=== PATIENT | male | born 1995 | race Two or more races ===

== ENCOUNTER 2016-11-30 18:45 | Emergency (ER) | payer SELFPAY ==
[~2016-11-30] VITALS: Ht 182.9 cm; Wt 81.6 kg
[2016-11-30 18:53] VITALS: BP 151/70
[2016-11-30] MEDS ORDERED: SULF1TAB24 PO (19:01)
[2016-11-30] MEDS ORDERED: NAPR500T PO (19:01)
--- NOTE | 2016-11-30 19:02 | PHYS DOC ---
Past Medical History Past Medical History: Asthma Past Surgical History: No Surgical History Alcohol Use: None Drug Use: None Adult General Chief Complaint Chief Complaint: INSECT BITE HPI HPI Patient is a 21 year old male presents to the emergency Department complaint insect bite. He states that her days ago he noticed an insect bite on the right upper extremity. He states that prior to going to bed that night he had seen a brown spider. Patient also reports that he has a similar lesion on the left hip that he has been treating with peroxide and moist heat. He reports no fever, no headache, no myalgias. Review of Systems Review of Systems Constitutional: Denies fever or chills [] Eyes: Denies change in visual acuity, redness, or eye pain [] HENT: Denies nasal congestion or sore throat [] Respiratory: Denies cough or shortness of breath [] Cardiovascular: No additional information not addressed in HPI [] GI: Denies abdominal pain, nausea, vomiting, bloody stools or diarrhea [] : Denies dysuria or hematuria [] Musculoskeletal: Denies back pain or joint pain [] Integument: Insect bite Neurologic: Denies headache, focal weakness or sensory changes [] Endocrine: Denies polyuria or polydipsia [] Allergies Allergies Allergies Coded Allergies Type Severity Reaction Last Updated Verified No Known Drug Allergies 07/19/13 No Physical Exam Physical Exam Constitutional: Well developed, well nourished, no acute distress, non-toxic appearance. [] Eyes: PERRLA, EOMI, conjunctiva normal, no discharge. [] Neck: Normal range of motion, no tenderness, supple, no stridor. [] Cardiovascular:Heart rate regular rhythm, no murmur [] Lungs & Thorax: Bilateral breath sounds clear to auscultation [] Skin: Warm, dry, right forearm, volar aspect, 2 cm area of induration with central pustule. There is no fluctuance. Is mildly tender to palpate. The left buttock has a partially healed lesion without induration or fluctuance. Is nontender to palpate. Lymphatics: No gross lymphadenopathy Back: No tenderness, no CVA tenderness. [] Current Patient Data Vital Signs Vital Signs Date Time Temp Pulse Resp B/P (MAP) Pulse Ox O2 Delivery O2 Flow Rate FiO2 11/30/16 18:53 98.5 103 15 97 Room Air 98.5 EKG EKG [] Radiology/Procedures Radiology/Procedures [] Course & Med Decision Making Course & Med Decision Making Pertinent Labs and Imaging studies reviewed. (See chart for details) [] Dragon Disclaimer Dragon Disclaimer This electronic medical record was generated, in whole or in part, using a voice recognition dictation system. Departure Departure Impression: Primary Impression: Insect bite Additional Impression: Cellulitis Referrals: NON,STAFF (PCP) Patient Instructions: Cellulitis, Insect Bite Additional Instructions: Warm packs to the affected area. Do not manipulate, squeeze, poke or prod the area of concern. Return to the emergency Department for new symptoms or concerns or worsening of current condition. Scripts Naproxen (NAPROSYN) 500 Mg Tablet 500 MG PO BID Y for PAIN, #20 TAB Prov: EVANGELIST GODDARD APRN 11/30/16 Sulfamethoxazole/Trimethoprim (BACTRIM DS TABLET) 1 Each Tablet 1 TAB PO BID, #20 TAB Prov: EVANGELIST GODDARD APRN 11/30/16 Problem Qualifiers Primary Impression: Insect bite Encounter type: initial encounter Qualified Codes: W57.XXXA - Bitten or stung by nonvenomous insect and other nonvenomous arthropods, initial encounter Additional Impression: Cellulitis Site of cellulitis: extremity Site of cellulitis of extremity: upper extremity Laterality: right Qualified Codes: L03.113 - Cellulitis of right upper limb EVANGELIST GODDARD APRN Nov 30, 2016 19:01
== END 2016-11-30 19:05 | disposition home or self-care (01) ==
LOC: ER 18:45
DX: S40.861A Insect bite (nonvenomous) of right upper arm, initial encounter (principal); L03.113 Cellulitis of right upper limb; J45.909 Unspecified asthma, uncomplicated; W57.XXXA Bitten or stung by nonvenomous insect and other nonvenomous arthropods, initial encounter; Y93.89 Activity, other specified; Y92.89 Other specified places as the place of occurrence of the external cause; Y99.8 Other external cause status
CPT/HCPCS: 99283

== ENCOUNTER 2017-12-28 15:55 | Emergency (ER) | payer SELFPAY ==
[~2017-12-28] VITALS: Ht 190.5 cm; Wt 90.7 kg
[~2017-12-28 15:55] MED LIST: NAPR-683 PO; SULF1TAB24 PO
[2017-12-28 16:22] VITALS: BP 126/63
[2017-12-28] MEDS ORDERED: SULF1TAB24 PO (16:54)
[2017-12-28] MEDS ORDERED: CEPH500C PO (16:54)
[2017-12-28] MEDS ORDERED: MUPI15CR TP (16:54)
--- NOTE | 2017-12-28 16:54 | PHYS DOC ---
Past Medical History Past Medical History: Asthma Past Surgical History: No Surgical History Alcohol Use: None Drug Use: None Adult General Chief Complaint Chief Complaint: INSECT BITE HPI HPI Patient is a 22 year old male with history of asthma, eczema, who presents with cellulitis to the left lower extremity that began yesterday. Patient denies any fever. He states the eczema lesion got infected. Review of Systems Review of Systems Constitutional: Denies fever or chills [] Musculoskeletal: Denies back pain or joint pain [] Integument: cellulitis to the left lower extremity Neurologic: Denies headache, focal weakness or sensory changes [] All other systems were reviewed and found to be within normal limits, except as documented in this note. Allergies Allergies Allergies Coded Allergies Type Severity Reaction Last Updated Verified No Known Drug Allergies 07/19/13 No Physical Exam Physical Exam Constitutional: Well developed, well nourished, no acute distress, non-toxic appearance. [] Skin: Warm, dry, left lateral leg with an area of cellulitis approximately 3 x 3 cm, there is another area below eat approximately 2 x 2 centimeters, placenta has multiple open wounds with trace drainage, no fluctuance. Both lesions are warm to touch. Both lesions are tender to touch. +2 left pedal pulse. Cap refill less than 2 seconds the left lower extremity. Back: No tenderness, no CVA tenderness. [] Extremities: No tenderness, no cyanosis, no clubbing, ROM intact, no edema. [] Neurologic: Alert and oriented X 3, normal motor function, normal sensory function, no focal deficits noted. [] Psychologic: Affect normal, judgement normal, mood normal. [] Current Patient Data Vital Signs Vital Signs Date Time Temp Pulse Resp B/P (MAP) Pulse Ox O2 Delivery O2 Flow Rate FiO2 12/28/17 16:22 98.5 89 18 126/63 (84) 95 Room Air 98.5 EKG EKG [] Radiology/Procedures Radiology/Procedures [] Course & Med Decision Making Course & Med Decision Making Pertinent Labs and Imaging studies reviewed. (See chart for details) This is a 22-year-old male presenting to the ED with cellulitis to the left lower extremity. Tetanus up-to-date. Discharged with cephalexin, Bactrim and Bactroban ointment. Follow-up with PCP in 1-2 weeks. Dragon Disclaimer Dragon Disclaimer This electronic medical record was generated, in whole or in part, using a voice recognition dictation system. Departure Departure Impression: Primary Impression: Cellulitis of lower extremity Disposition: HOME, SELF-CARE Condition: STABLE Referrals: NO PCP (PCP) follow with your doctor in one week Patient Instructions: Cellulitis, [id number] Additional Instructions: You were evaluated in the emergency room for cellulitis to the left lower extremity from infected eczema. Use the prescribed medications as ordered. Follow-up with your doctor in 1-2 weeks. Scripts Sulfamethoxazole/Trimethoprim (BACTRIM DS TABLET) 1 Each Tablet 1 TAB PO BID, #20 TAB Prov: JEANNIE LONG APRN 12/28/17 Mupirocin Calcium (BACTROBAN CREAM) 15 Gm Cream..g. 1 WOO TP TID, #30 GM Prov: JEANNIE LONG APRN 12/28/17 Cephalexin (CEPHALEXIN) 500 Mg Capsule 1 CAP PO QID, #40 CAP Prov: JEANNIE LONG APRN 12/28/17 Problem Qualifiers Primary Impression: Cellulitis of lower extremity Laterality: left Qualified Codes: L03.116 - Cellulitis of left lower limb JEANNIE LONG APRN Dec 28, 2017 16:54
== END 2017-12-28 16:59 | disposition home or self-care (01) ==
LOC: ER 15:55
DX: L03.116 Cellulitis of left lower limb (principal); J45.909 Unspecified asthma, uncomplicated
CPT/HCPCS: 99283

== ENCOUNTER 2018-04-01 18:28 | Emergency (ER) | payer SELFPAY ==
[~2018-04-01] VITALS: Ht 190.5 cm; Wt 90.7 kg
[~2018-04-01 18:28] MED LIST changes: +CEPH500C PO; +MUPI15CR TP
[2018-04-01 18:50] VITALS: BP 119/70
[2018-04-01] MEDS ORDERED: methylPREDNISolone SOD SUCC PF 125 MG/2 ML VIAL. IM ONE (19:00)
[2018-04-01] MEDS ORDERED: IPRATRPIUM/ALBUTEROL 0.5/2.5MG 3 ML NEBU. NEB ONE (19:15)
[2018-04-01] MEDS ORDERED: SULF1TAB24 PO (19:37)
[2018-04-01] MEDS ORDERED: METH4TAB2 PO (19:37)
--- NOTE | 2018-04-01 19:37 | PHYS DOC ---
Past Medical History Past Medical History: Asthma Past Surgical History: No Surgical History Alcohol Use: None Drug Use: None Adult General Chief Complaint Chief Complaint: ASTHMA HPI HPI Patient is a 23 year old male who presents with complaint of cough, wheezing and shortness of breath for the last 3 days. Patient indicates that his cough is been productive of brown colored sputum. Patient also indicates that he has had rash on his hands that he was treated with antibiotics for recently and states that the rash had improved somewhat but then has returned. He indicates that the rash on his hand starts off a small little blisters that itch and then later his skin's first by mouth. Regarding his cough and wheezing, he states that he has been using his albuterol inhaler at home but states that it has not been helping. Review of Systems Review of Systems Constitutional: Denies fever or chills [] Respiratory: Complains of cough and shortness of breath [] Cardiovascular: No additional information not addressed in HPI [] Integument: Complains of rash and skin lesions to bilateral hands [] Current Medications Current Medications Current Medications Medications (Trade) Dose Ordered Sig/Sarah Start Time Stop Time Status Last Admin Dose Admin Albuterol/ Ipratropium (Duoneb) 3 ml 1X ONCE 04/01/18 19:15 04/01/18 19:16 DC 04/01/18 19:22 3 ML Methylprednisolone Sodium Succinate (SOLU-Medrol 125MG VIAL) 125 mg 1X ONCE 04/01/18 19:00 04/01/18 19:01 DC 04/01/18 19:15 125 MG Allergies Allergies Allergies Coded Allergies Type Severity Reaction Last Updated Verified No Known Drug Allergies 07/19/13 No Physical Exam Physical Exam Constitutional: Well developed, well nourished, no acute distress, non-toxic appearance. [] HENT: Normocephalic, atraumatic, bilateral external ears normal, oropharynx moist, no oral exudates, nose normal. [] Neck: Normal range of motion, no tenderness, supple, no stridor. [] Cardiovascular: Regular rate and rhythm [] Lungs & Thorax: Slightly reduced breath sounds bilaterally with inspiratory and expiratory wheezes to auscultation [] Skin: Both hands with rash to both palmar and dorsal aspects of hands with significant peeling primarily around the fingers consistent with dyshidrosis. [] Current Patient Data Vital Signs Vital Signs Date Time Temp Pulse Resp B/P (MAP) Pulse Ox O2 Delivery O2 Flow Rate FiO2 04/01/18 19:23 Room Air 04/01/18 18:50 98.1 85 24 119/70 (86) 94 98.1 EKG EKG [] Radiology/Procedures Radiology/Procedures [] Impressions: Two-view chest x-ray demonstrates no acute process. Course & Med Decision Making Course & Med Decision Making Pertinent Labs and Imaging studies reviewed. (See chart for details) [] Dragon Disclaimer Dragon Disclaimer This electronic medical record was generated, in whole or in part, using a voice recognition dictation system. Departure Departure Impression: Primary Impression: Acute bronchitis Additional Impressions: Asthma exacerbation Dyshidrosis Disposition: HOME, SELF-CARE Condition: STABLE Referrals: NO PCP (PCP) Patient Instructions: Acute Bronchitis, Asthma, Adult, Eczema Scripts Ipratropium/Albuterol Sulfate (DUONEB 0.5-3(2.5) MG/3 ML) 3 Ml Ampul.neb 3 ML NEB QID PRN for SHORTNESS OF BREATH, #60 EACH Prov: YOKASTA RODRIGUEZ Jr. DO 04/01/18 Sulfamethoxazole/Trimethoprim (BACTRIM DS TABLET) 1 Each Tablet 1 TAB PO BID, #20 TAB Prov: YOKASTA RODRIGUEZ Jr. DO 04/01/18 Methylprednisolone (MEDROL) 4 Mg Tab.ds.pk 1 PKG PO UD, #1 PKG Prov: YOKASTA RODRIGUEZ Jr. DO 04/01/18 Problem Qualifiers Primary Impression: Acute bronchitis Bronchitis organism: unspecified organism Qualified Codes: J20.9 - Acute bronchitis, unspecified Additional Impressions: Asthma exacerbation Asthma severity: unspecified severity Asthma persistence: unspecified Qualified Codes: J45.901 - Unspecified asthma with (acute) exacerbation YOKASTA RODRIGUEZ Jr. DO Apr 01, 2018 19:37
[2018-04-01] MEDS ORDERED: IPRA3AMP29 NEB (19:44)
--- NOTE | 2018-04-01 20:08 | RAD ---
PROCEDURE: CHEST PA LATERAL CLINICAL INDICATION: Short of breath COMPARISON: None FINDINGS: No pneumothorax identified. Cardiac and mediastinal contours unremarkable. No pulmonary consolidation or acute airspace disease. No acute osseous abnormalities identified. IMPRESSION: No pulmonary consolidation or acute airspace disease. Electronically signed by: José Zaman DO (04/01/2018 8:04 PM) [facility]
== END 2018-04-01 19:55 | disposition home or self-care (01) ==
LOC: ER 18:28
DX: J45.901 Unspecified asthma with (acute) exacerbation (principal); J20.9 Acute bronchitis, unspecified; L30.1 Dyshidrosis [pompholyx]
CPT/HCPCS: 71046; 94640; 96372; 99283; J2930; J7620

== ENCOUNTER 2019-11-09 17:24 | Emergency (ER) | payer SELFPAY ==
[~2019-11-09] VITALS: Ht 190.5 cm; Wt 90.9 kg
[~2019-11-09 17:24] MED LIST changes: +IPRA3AMP29 NEB; +METH4TAB2 PO
--- NOTE | 2019-11-09 19:55 | PHYS DOC ---
Past Medical History Past Medical History: Asthma Past Surgical History: No Surgical History Smoking Status: Never Smoker Alcohol Use: Occasionally Drug Use: None General Adult EDM: Chief Complaint: ALLERGIC REACTION HPI: HPI: Patient is a 24 year old male patient who presents with upper lip swelling starting today. Patient states he has had this in the past, states last time he thought was due to a pill that was in his trunk. States he has had this today, he thinks it was from something he may have in, states he was eating Cheerios before the started, and all his eating notes he started to have the feeling like he was swelling. States he had also and wearing a mask all day and thinks this may have been contributing to her. Denies any shortness of breath. Denies any cough. Denies any medications other than his albuterol inhaler. Patient denies any dizziness. Denies any nausea. Denies any body rash. States he had taken some Benadryl at 7:00 this morning, none since then. States it did seem to help a little bit Review of Systems: Review of Systems: Constitutional: Denies fever or chills. [] HENT: Denies nasal congestion or sore throat. States swelling to upper lip [] Respiratory: Denies cough or shortness of breath. [] Cardiovascular: Denies chest pain or edema. [] GI: Denies abdominal pain, nausea, vomiting, bloody stools or diarrhea. [] : Denies dysuria. [] Musculoskeletal: Denies back pain or joint pain. [] Integument: Denies rash. [] Neurologic: Denies headache, focal weakness or sensory changes. [] Psychiatric: Denies depression or anxiety. [] Heart Score: Risk Factors: Risk Factors: DM, Current or recent (<one month) smoker, HTN, HLP, family history of CAD, obesity. Risk Scores: Score 0 - 3: 2.5% MACE over next 6 weeks - Discharge Home Score 4 - 6: 20.3% MACE over next 6 weeks - Admit for Clinical Observation Score 7 - 10: 72.7% MACE over next 6 weeks - Early Invasive Strategies Allergies: Allergies: Allergies Coded Allergies Type Severity Reaction Last Updated Verified No Known Drug Allergies 07/19/13 No Physical Exam: PE: Constitutional: Well developed, well nourished, no acute distress, non-toxic appearance. [] HENT: Normocephalic, atraumatic, bilateral external ears normal, oropharynx moist, no oral exudates, nose normal. Upper lip noted swollen [] Eyes: PERRLA, EOMI, conjunctiva normal, no discharge. [] Neck: Normal range of motion, no tenderness, supple, no stridor. [] Cardiovascular:Heart rate regular rhythm, no murmur [] Lungs & Thorax: Bilateral breath sounds clear to auscultation faint wheezing noted once per to lungs [] Abdomen: Bowel sounds normal, soft, no tenderness, no masses, no pulsatile masses. [] Skin: Warm, dry, no erythema, no rash. [] Back: No tenderness, no CVA tenderness. [] Extremities: No tenderness, no cyanosis, no clubbing, ROM intact, no edema. [] Neurologic: Alert and oriented X 3, normal motor function, normal sensory function, no focal deficits noted. [] Psychologic: Affect normal, judgement normal, mood normal. [] Current Patient Data: Vital Signs: Vital Signs Date Time Temp Pulse Resp B/P (MAP) Pulse Ox O2 Delivery O2 Flow Rate FiO2 11/09/19 19:14 98.0 73 18 123/68 (86) 97 Room Air 98.0 EKG: EKG: [] Radiology/Procedures: Radiology/Procedures: [] Course & Med Decision Making: Course & Med Decision Making Pertinent Labs and Imaging studies reviewed. (See chart for details) []Given history of similar, with isolated finding of angioedema, unrelated to medications, believe likely food or topical based. Will treat here, observe. Following medications, patient states he started to feel better, has less swelling. Patient noted to have less swelling noted at this time. Patient will follow up with primary care to determine feel she did allergy testing or something similar Laurie Disclaimer: Laurie Disclaimer: This electronic medical record was generated, in whole or in part, using a voice recognition dictation system. Departure Departure Impression: Primary Impression: Angioedema Qualified Codes: T78.3XXD - Angioneurotic edema, subsequent encounter Disposition: HOME, SELF-CARE Condition: STABLE Referrals: NO PCP (PCP) Patient Instructions: Angioedema, [id number] Additional Instructions: As we discussed, there are multiple things that could have been causing your lip to swell like this. Make sure you are keeping your mask clean. Make sure you are cleaning your inhaler after using it. If you keep on having these, you may want to follow-up with your primary care provider to get a referral to see an property specialist to do some testing. If you start to have any breathing problems, noticing some closing of your throat, or other concerning symptoms, please return to the ER Justicifation of Admission Dx: Justifications for Admission: Justification of Admission Dx: N/A JIMMY MG APRN Nov 09, 2019 19:55
[2019-11-09] MEDS ORDERED: diphenhydrAMINE 50 MG/ML VIAL IVP ONE (20:00)
[2019-11-09] MEDS ORDERED: methylPREDNISolone SOD SUCC PF 125 MG/2 ML VIAL. IV ONE (20:00)
[2019-11-09 20:55] VITALS: BP 129/74
== END 2019-11-09 21:03 | disposition home or self-care (01) ==
LOC: ER 17:24
DX: T78.3XXA Angioneurotic edema, initial encounter (principal); J45.909 Unspecified asthma, uncomplicated
CPT/HCPCS: 96374; 96375; 99284; J1200; J2930